=== PATIENT | female | born 2000 | race Caucasian/White ===

== ENCOUNTER 2020-10-25 01:06 | Emergency (ER) | payer SELFPAY ==
--- NOTE | ~2020-10-25 | XR_ITS ---
EXAMINATION: XR ankle LT min 3V DATE: 10/25/2020 04:00 INDICATION: Left ankle injury. TECHNIQUE: 4 views of left ankle were obtained. COMPARISON: None. FINDINGS: Bone alignment is normal. No fracture. Joint spaces are well maintained. IMPRESSION: 1. No fracture. Reviewed, dictated and finalized at location A. IMPRESSION: 1. No fracture.
[2020-10-25 01:10] VITALS: BP 134/79; PULSE 87; RESP 20; TEMP 36.6; O2SAT 99
--- NOTE | 2020-10-25 02:16 | ED.LOWEXIN ---
HPI - Extremity Injury (Lower) General Chief Complaint: Extremity Injury, Lower Stated Complaint: Left ankle injury Time Seen by Provider: 10/25/20 01:20 Source: patient and RN notes reviewed Mode of arrival: wheelchair Limitations: no limitations History of Present Illness complaint: ankle injury Onset (ago): hour(s) (5) Type of Injury: inversion Place: work Severity: moderate Relieving factors: nothing Exacerbating factors: weight bearing and movement Context: walking Associated symptoms: swelling, able to partially bear weight and ambulatory Other symptoms: none Related Data Home Medications Medication Instructions Recorded Confirmed montelukast [Singulair] 10 mg PO DAILY 10/25/20 10/25/20 Allergies Allergy/AdvReac Type Severity Reaction Status Date / Time amoxicillin [From Augmentin] Allergy Unknown Verified 10/25/20 01:40 clavulanic acid Allergy Unknown Verified 10/25/20 01:40 [From Augmentin] Review of Systems Review of Systems: All systems reviewed & are unremarkable except as noted in HPI and below PMFSH Past Medical History Medical History (Updated 10/25/20 @ 02:18 by Bruce Long MD) Allergies Surgical History Surgical History (Updated 10/25/20 @ 02:18 by Bruce Long MD) No pertinent past surgical history Social History Social History (Updated 10/25/20 @ 02:18 by Bruce Long MD) Smoking status: Never smoker Alcohol intake: never Substance use: never Exam Const: General: healthy appearing and no acute distress Nutritional Appearance: well nourished and obese morbidly obese Orientation/consciousness: patient oriented x3 Other: Female nurse in room during examination. HENMT: Head: normal to inspection Ears: external ears normal Eyes: General: appearance normal, both eyes and all related structures Conjunctivae: conjunctivae normal Pupils: Equal, round and reactive pupils present EOM: EOMs intact bilaterally Neck: Neck: normal visual inspection Resp: Effort & Inspection: normal respiratory effort Auscultation: clear to auscultation bilaterally Cardio: Rate: regular rate Rhythm: regular rhythm GI: GI Palp: Yes Soft to palpation and No Tenderness to palpation present (GI) Auscultation: normal bowel sounds Back/Spine/Pelvis: Cervical Spine: cervical ROM normal Thoracic/Lumbar Spine: thoraco-lumbar ROM normal Skin: General skin exam: normal color Rashes: no rashes Neuro: General: patient oriented x3, moves all extremities, no meningeal signs and no focal motor deficits Speech: normal speech Extrem: General: normal exam except as noted Left lower extremity: ankle Details: tenderness Location: of the lateral malleolus, swelling Details: laterally and normal ROM; no warmth Psych: Appearance: grossly normal and well kempt Mental Status: mental status grossly normal Affect: normal affect Attitude: cooperative Thought content: Yes Normal thought content present Course Vital Signs Vital signs: Vital Signs Temperature 36.6 C 10/25/20 01:10 Pulse Rate 87 10/25/20 01:10 Respiratory Rate 20 10/25/20 01:10 Blood Pressure 134/79 10/25/20 01:10 Pulse Oximetry 99 10/25/20 01:10 Temperature 36.6 C 10/25/20 01:10 Pulse Rate 80 10/25/20 02:19 Respiratory Rate 20 10/25/20 02:19 Blood Pressure 130/70 10/25/20 02:19 Pulse Oximetry 98 10/25/20 02:19 Procedures Orthopedic Splinting/Casting Injury #1: Splinting/Casting Date: 10/25/20 Splinting/Casting Time: 02:20 Side: left Lower Extremity Injury Location: ankle Lower Extremity Immobilizer: AirCast Splint: prefabricated Pre-Formed: timur ankle stirrup Pre-Procedure Neuro Vascular Exam: normal Post-Procedure Neuro Vascular Exam: normal Discharge Plan Discharge Clinical Impression: Ankle sprain and strain Patient Disposition: Home, Self-Care Condition: Stable Instructions: Ankle Sprain (ED)
[2020-10-25 02:19] VITALS: BP 130/70; PULSE 80; RESP 20; O2SAT 98
== END 2020-10-25 02:24 | disposition home or self-care (01) ==
PROVIDERS: Emergency Provider Emergency Medicine; PCP Family Medicine
DX: S93.402A Sprain of unspecified ligament of left ankle, initial encounter (principal)
CPT/HCPCS: 29515; 73610; 99282; 99283; L4350

== ENCOUNTER 2021-03-13 16:34 | Outpatient (CLI) | payer BC, MEDICAID, SELFPAY ==
[2021-03-13 16:54] LABS: Basophils Absolute Auto 0.06 K/mm3 (0.00-0.10); Basophils Percent Auto 0.6 % (0.0-1.0); Eosinophils Absolute Auto 0.21 K/mm3 (0.02-0.50); Eosinophils Percent Auto 2.1 % (1.0-6.0); Hematocrit 37.5 % (35.0-49.0); Hemoglobin 12.8 g/dL (12.0-15.0); Immature Granulocyte Absolute 0.02 K/mm3 (0.00-0.00); Immature Granulocyte Percent A 0.2 % (0.0-0.0); Lymphocytes Absolute Auto 2.29 K/mm3 (1.10-4.50); Lymphocytes Percent Auto 23.3 % (18.0-42.0); Mean Corpuscular HGB Conc 34.1 g/dL (32.0-36.0); Mean Corpuscular Hemoglobin 31.7 pg (27.0-31.0); Mean Corpuscular Volume 92.8 fL (78.0-102.0); Monocytes Absolute Auto 0.65 K/mm3 (0.10-0.90); Monocytes Percent Auto 6.6 % (2.0-11.0); Neutrophils Absolute Auto 6.6 K/mm3 (1.7-7.2); Neutrophils Percent Auto 67.2 % (50.0-70.0); Platelet Count Result 334 K/mm3 (150-420); Red Blood Count 4.04 M/mm3 (4.20-5.40); Red Cell Distribution Width 12.1 % (11.6-14.4); White Blood Count 9.8 K/mm3 (4.8-10.8)
[2021-03-13 18:05] LABS: Anion Gap 13 mmol/L (8-16); Blood Urea Nitrogen 10 mg/dL (7-18); Calcium 9.2 mg/dL (8.5-10.1); Carbon Dioxide 26 mmol/L (21-32); Chloride 102 mmol/L (98-108); Estimated Glomerular Filt Rate > 60; Glucose 89 mg/dL (70-99); Osmolality Calculated 290 mOsm/kg (285-295); Potassium 3.8 mmol/L (3.5-5.1); Sodium 141 mmol/L (136-145); Vitamin B12 490 pg/mL (193-986)
[2021-03-13 18:40] LABS: Thyroid Stimulating Hormone Reflex 2.77 u/IU/mL (0.36-3.74)
== END 2021-03-13 16:35 | disposition home or self-care (01) ==
LOC: CHSLAB 16:38
PROVIDERS: PCP Family Medicine; Visit Provider Nurse Practitioner
DX: R73.09 Other abnormal glucose (principal); R53.83 Other fatigue
CPT/HCPCS: 36415; 80048; 82607; 84443; 85025

== ENCOUNTER 2022-01-04 20:39 | Emergency (ER) | payer BC, MEDICAID, SELFPAY ==
[2022-01-04 20:54] VITALS: BP 138/92; PULSE 81; RESP 18; TEMP 36.6; O2SAT 100
[2022-01-04 21:15] VITALS: O2SAT 100
[2022-01-04 21:17] LABS: Add Urine Microscopic? YES; Appearance Urine Clear (Clear); Bilirubin Urine Negative (Negative); Blood Urine 1+ (Negative); Color Urine Light Yellow (Yellow); Glucose Urine UA Negative (Negative); Ketones Urine Negative (Negative); Leukocyte Esterase Ur Negative (Negative); Nitrate Urine Negative (Negative); Protein Urine Negative (Negative); Urobilinogen Urine 0.2 mg/dL (0.2-1.0)
[2022-01-04 21:23] LABS: Bacteria Urine Trace /hpf; RBC Urine 0-2 /hpf (0-2); Squamous Epithelial Cell Urine Few /hpf (Few); WBC Urine 0-3 /hpf (0-3)
[2022-01-04 21:30] VITALS: BP 138/89; O2SAT 99
[2022-01-04 21:31] VITALS: O2SAT 100
--- NOTE | 2022-01-04 21:34 | ED.GENADULT ---
HPI - General Adult General Chief complaint: Unspecified Stated complaint: kidney infection, sore throat Source: patient Mode of arrival: ambulatory History of Present Illness HPI narrative: this is a 21-year-old female that presents with some history of frequency burning upon urination with bladder pressure with currently no flank pain no hematuria is complaining of a sore throat with currently no fever chills no nausea vomiting no chest pain or shortness of breath. Onset (ago): day(s) Severity scale (1-10): 3 Quality: burning Related Data Home Medications Medication Instructions Recorded Confirmed montelukast 10 mg tablet 10 mg PO DAILY 10/25/20 01/04/22 (Singulair) albuterol sulfate 90 mcg/actuation 90 mcg inhalation DAILY 01/04/22 01/04/22 aerosol inhaler dupilumab 300 mg/2 mL subcutaneous 300 mg subcut DAILY 01/04/22 01/04/22 pen injector (Dupixent) escitalopram oxalate 20 mg tablet 20 mg PO DAILY 01/04/22 01/04/22 norethindrone 1.5 mg-ethinyl 1 tablet PO DAILY 01/04/22 01/04/22 estradiol 30 mcg(21)/iron 75 mg(7) tablet (Junel FE 1.5/30 (28)) quetiapine 50 mg tablet 50 mg PO DAILY 01/04/22 01/04/22 Allergies Allergy/AdvReac Type Severity Reaction Status Date / Time amoxicillin [From Augmentin] Allergy Unknown Verified 01/04/22 20:48 clavulanic acid Allergy Unknown Verified 01/04/22 20:48 [From Augmentin] ranitidine Allergy Unknown Verified 01/04/22 20:48 Review of Systems Review of Systems: All systems reviewed & are unremarkable except as noted in HPI and below Eyes: Eyes: Reports as per HPI ENT: Reports system reviewed and no additional complaints, except as documented PMFSH Past Medical History Medical History Allergies Surgical History Surgical History No pertinent past surgical history Social History Social History Smoking status: Never smoker Alcohol intake: never Substance use: never Exam Const: General: cooperative, healthy appearing, comfortable, no acute distress and well developed HENMT: Head: normal to inspection Face and sinus: normal facial exam Mouth: Yes Normal oral and palatal mucosa present Throat: abnormal tonsil Eyes: General: appearance normal, both eyes and all related structures Periorbital: periorbital findings normal Eyelids: eyelids normal Neck: Neck: normal visual inspection, full ROM, no lymphadenopathy and no meningeal signs Resp: Effort & Inspection: normal respiratory effort Auscultation: clear to auscultation bilaterally Cardio: Jugular venous distension: no JVD Palpation: normal PMI Rhythm: regular rhythm Skin: General skin exam: normal color and no rashes or lesions noted Neuro: General: oriented to person, oriented to place and oriented to time Extrem: General: normal to inspection, full ROM and capillary refill normal Psych: Mental Status: mental status grossly normal Course Course Emergency Course: UA reviewed with patient and strep also reviewed patient has enlarged red tonsils and will treat with some a dose of Bactim prior to discharge. Vital Signs Vital signs: Vital Signs Temperature 36.6 C 01/04/22 20:54 Pulse Rate 81 01/04/22 20:54 Respiratory Rate 18 01/04/22 20:54 Blood Pressure 138/92 H 01/04/22 20:54 Pulse Oximetry 100 01/04/22 20:54 Oxygen Delivery Room Air 01/04/22 20:54 Temperature 36.6 C 01/04/22 20:54 Pulse Rate 81 01/04/22 20:54 Respiratory Rate 18 01/04/22 20:54 Blood Pressure 138/92 H 01/04/22 20:54 Pulse Oximetry 100 01/04/22 20:54 Oxygen Delivery Room Air 01/04/22 20:54 Medical Decision Making Vital Signs Vital Signs: Vital Signs Temperature 36.6 C 01/04/22 20:54 Pulse Rate 81 01/04/22 20:54 Respiratory Rate 01/04/22 20:54 Blood Pressure 138/92 H 12/15
[2022-01-04 21:37] LABS: Strep Group A RT-PCR Negative (Negative)
[2022-01-04] MEDS: SULFAMETHOXAZOLE/TRIMETHOPRIM 800/160 MG DS TABLET 2 TAB PO (21:43)
== END 2022-01-04 22:00 | disposition home or self-care (01) ==
PROVIDERS: Emergency Provider Emergency Medicine; PCP Family Medicine
DX: J02.9 Acute pharyngitis, unspecified (principal)
CPT/HCPCS: 81001; 87651; 99283; A9270

== ENCOUNTER 2023-06-17 20:09 | Emergency (ER) | payer BC, MEDICAID, SELFPAY ==
--- NOTE | ~2023-06-17 | CT_ITS ---
EXAMINATION: CT abdomen pelvis w con DATE: 06/17/2023 21:39 INDICATION: Flank pain, status post stent placement 4 days ago TECHNIQUE: Computed tomography (CT) of the abdomen and pelvis was performed with 100 mL Omnipaque-350 intravenous contrast. Automated exposure control and iterative reconstruction technique were employe d. The dose-length product was 1415.73 mGy-cm. COMPARISON: None. FINDINGS: Lower thorax: Unremarkable Liver: Enlarged. Diffuse parenchymal low density. 3.5 cm slightly heterogeneous hyperdense or hyperen hancing right lobe mass. Biliary/Gallbladder: Gallbladder is normal. No bile duct dilation. Pancreas: No mass or duct dilation. Spleen: Normal. Adrenals:No mass. Kidneys: Right nephroureteral stent, in good position. Moderate distal ureteral dilation on the right , no obstructing stone or mass. 3 mm right upper pole and 5 mm right lower pole nonobstructing calcif ications. Normal left kidney. GI tract: No small or large bowel dilation. Appendix mildly dilated to 7 mm, very minimal adjacent fa t stranding. Mesentery/Peritoneum: No ascites, mass, or free air. Retroperitoneum: No mass. Pelvis: Pelvic organs are within normal limits. Soft Tissues: Soft tissues and body wall unremarkable. Bones: No acute osseous finding. IMPRESSION: Hepatomegaly. Steatosis. 3.5 cm right liver lobe mass, recommend nonemergent but timely outpatient MRI of the liver without an d with contrast for further evaluation. Right nephroureteral stent, in good position. Moderate distal ureteral dilation, presumably resolving dilation from recent obstructive uropathy, al though comparison studies not available to assess for interval change. Very mild dilation of the appendix with minimal stranding, may represent early acute appendicitis claude melania inflammatory changes tracking from the right collecting system. Reviewed, dictated and finalized at location [facility]. OR SYSTEMS ARCHITECT IMPRESSION: Hepatomegaly. Steatosis. 3.5 cm right liver lobe mass, recommend nonemergent but timely outpatient MRI o f the liver without and with contrast for further evaluation. Right nephroureteral stent, in good position. Moderate distal ureteral dilation, presumably resolving dilation from recent ob structive uropathy, although comparison studies not available to assess for int erval change. Very mild dilation of the appendix with minimal stranding, may represent early acute appendicitis versus inflammatory changes tracking from the right collecti ng system.
[2023-06-17 20:09] VITALS: BP 144/92; PULSE 106; RESP 20; TEMP 36.9; O2SAT 100
--- NOTE | 2023-06-17 20:17 | ED.FEMALEGU ---
HPI - Female Genitourinary General Chief complaint: Abdominal Pain Stated complaint: post-op fever Time Seen by Provider: 06/17/23 20:17 Source: patient and family History of Present Illness HPI Narrative: 22 years old white female came to the emergency room by private car complaining of nausea, chills, right flank pain radiating to suprapubic area, throbbing pain started 12 hours ago. Patient had Tylenol 1 hour prior to arrival. Patient is status post a urinary procedure and stent placement at [facility] 4 days ago. Today the last dose of Bactrim antibiotic which started 4 days ago. Patient is 3 months Related Data Home Medications Medication Instructions Recorded Confirmed montelukast 10 mg tablet 10 mg PO DAILY 10/25/20 06/17/23 (Singulair) albuterol sulfate 90 mcg/actuation 90 mcg inhalation DAILY 01/04/22 06/17/23 aerosol inhaler dupilumab 300 mg/2 mL subcutaneous 300 mg subcut DAILY 01/04/22 06/17/23 pen injector (Dupixent) escitalopram oxalate 20 mg tablet 20 mg PO DAILY 01/04/22 06/17/23 quetiapine 50 mg tablet 50 mg PO DAILY 01/04/22 06/17/23 omeprazole 40 mg capsule,delayed 40 mg PO DAILY 06/17/23 06/17/23 release valacyclovir 500 mg tablet 500 mg PO DAILY 06/17/23 06/17/23 Allergies Allergy/AdvReac Type Severity Reaction Status Date / Time amoxicillin [From Augmentin] Allergy Unknown Verified 01/04/22 20:48 clavulanic acid Allergy Unknown Verified 01/04/22 20:48 [From Augmentin] ranitidine Allergy Unknown Verified 01/04/22 20:48 Review of Systems Review of Systems: All systems reviewed & are unremarkable except as noted in HPI and below PMFSH Past Medical History Medical History Allergies Surgical History Surgical History No pertinent past surgical history Social History Social History Smoking status: Never smoker Alcohol intake: never Substance use: never Exam Narrative: General appearance: Well-developed, well-nourished Skin: Normal color Head: Normocephalic, nontraumatic Eyes: Clear conjunctiva ENT: Oropharynx normal, ears normal, nose normal Neck: Supple, nontender Chest and respiratory: Airway patent, no respiratory distress, no accessory muscle use Heart: Regular rate/rhythm Abdomen: Soft, zigg-wg-hakwbred tenderness right flank, and suprapubic area , no organomegaly, quiet bowel sounds Vascular: Normal peripheral pulses, normal capillary refill. Musculoskeletal: Normal range of motion, nontender back Neurologic: Alert and oriented ?3, [employer] is normal as tested, no gross motor deficit Course Consultations Consultation #1: DR RAMIREZ ,SURGERY ,[facility]. WAITING LIST Date: 06/17/23 Time: 23:30 Consultation #2: DR [facility] AT [facility] WHO ACCEPT[facility] THE PATIENT TRANSFER PAIN Date: 06/18/23 Time: 02:05 Vital Signs Vital signs: Vital Signs Temperature 36.9 C 06/17/23 20:09 Pulse Rate 106 H 06/17/23 20:09 Respiratory Rate 20 06/17/23 20:09 Blood Pressure 144/92 H 06/17/23 20:09 Pulse Oximetry 100 06/17/23 20:09 Oxygen Delivery Room Air 06/17/23 20:09 Temperature 36.9 C 06/18/23 00:00 Pulse Rate 102 H 06/18/23 00:00 Respiratory Rate 18 06/18/23 00:00 Blood Pressure 129/61 06/18/23 00:00 Pulse Oximetry 97 06/18/23 00:00 Oxygen Delivery Room Air 06/18/23 00:00 MDM - Female Genitourinary MDM Narrative Medical decision making narrative: IN THE ED PATIENT RECEIVED 1 L OF NORMAL SALINE, 8 MG OF ZOFRAN IV, 30 MG OF TORADOL IV 1
[2023-06-17 20:22] LABS: Appearance Urine Clear (Clear); Bilirubin Urine Negative (Negative); Blood Urine 3+ (Negative); Color Urine Light Yellow (Yellow); Glucose Urine UA Negative (Negative); Ketones Urine Negative (Negative); Leukocyte Esterase Ur Trace LEU/UL (Negative); Nitrate Urine Negative (Negative); Protein Urine 1+ (Negative); Urobilinogen Urine 0.2 mg/dL (0.2-1.0)
[2023-06-17 20:41] LABS: Basophils Absolute Auto 0.03 K/mm3 (0.00-0.10); Basophils Percent Auto 0.4 % (0.0-1.0); Eosinophils Absolute Auto 0.07 K/mm3 (0.02-0.50); Eosinophils Percent Auto 0.9 % (1.0-6.0); Hemoglobin 12.2 g/dL (12.0-15.0); Immature Granulocyte Absolute 0.02 K/mm3 (0.00-0.00); Immature Granulocyte Percent A 0.3 % (0.0-0.0); Lymphocytes Absolute Auto 1.33 K/mm3 (1.10-4.50); Mean Corpuscular Hemoglobin 30.1 pg (27.0-31.0); Mean Corpuscular Volume 91.4 fL (78.0-102.0); Mean Platelet Volume 8.8 fl (9.2-11.8); Monocytes Absolute Auto 0.39 K/mm3 (0.10-0.90); Neutrophils Percent Auto 76.4 % (50.0-70.0); Platelet Count Result 225 K/mm3 (150-420); Red Blood Count 4.05 M/mm3 (4.20-5.40); Red Cell Distribution Width 13.3 % (11.6-14.4); White Blood Count 7.8 K/mm3 (4.8-10.8)
[2023-06-17 20:44] LABS: Add Urine Microscopic? YES; Bacteria Urine None seen /hpf; RBC Urine 21-50 /hpf (0-2); Squamous Epithelial Cell Urine Occasional /hpf (Few); WBC Urine 0-3 /hpf (0-3)
[2023-06-17] MEDS: SODIUM CHLORIDE 0.9% IV 1,000 ML 999 ML IV CONT (20:46)
[2023-06-17 20:57] LABS: Alanine Aminotransferase 40 U/L (14-59); Albumin Level 3.7 g/dL (3.4-5.0); Alkaline Phosphatase 108 U/L (46-116); Anion Gap 10 mmol/L (8-16); Aspartate Amino Transferase 17 U/L (15-37); Bilirubin,Total 0.3 mg/dL (0.00-1.00); Blood Urea Nitrogen 17 mg/dL (7-18); Calcium 8.4 mg/dL (8.5-10.1); Carbon Dioxide 28 mmol/L (21-32); Chloride 97 mmol/L (98-108); Estimated CRCL calculation 111 ml/min; Estimated Glomerular Filt Rate > 60; Glucose 87 mg/dL (70-99); Osmolality Calculated 280 mOsm/kg (285-295); Potassium 3.9 mmol/L (3.5-5.1); Sodium 135 mmol/L (136-145); Total Protein 7.3 g/dL (6.4-8.2)
[2023-06-17] MEDS: ONDANSETRON INJ 4 MG/2 ML VIAL 8 MG IV PUSH (21:00)
[2023-06-17 21:02] LABS: Lactic Acid Reflex 1.1 mmol/L (0.4-2.0)
[2023-06-17 21:30] VITALS: BP 142/79; PULSE 100; RESP 20; TEMP 37.5; O2SAT 98
--- NOTE | 2023-06-17 22:07 | PC.NURSE ---
Spoke c pt about results. Will call pts. urology surgeon at [facility] for possible transfer. Pt states she is feeling worse again, cheeks flushed and temp increasing. Flu, covid swab obtained for testing.
[2023-06-17 22:09] VITALS: BP 132/69; PULSE 112; RESP 20; O2SAT 100
[2023-06-17] MEDS: KETOROLAC 30 MG/ML VIAL (*BKC) IV PUSH (22:18)
[2023-06-17] MEDS: ERTAPENEM 1 GM/NS 50 ML 1 GM/50 ML BAG IVPB (22:20)
[2023-06-17 22:41] VITALS: BP 125/66; PULSE 117; RESP 20; O2SAT 98
[2023-06-17 22:44] LABS: SARS-CoV-2 RNA PCR Negative (Negative)
[2023-06-17 22:45] LABS: Influenza A QL RT-PCR Negative (Negative); Influenza B QL RT-PCR Negative (Negative); RSV RNA, RT-PCR Negative (Negative)
--- NOTE | 2023-06-17 23:24 | PC.NURSE ---
Discussed POC for transfer c pt and S.O. Explained no beds at [facility] where pts. urologist is located and no beds at [facility]. Pt to stay in ER until possible bed available at [facility] tomorrow for transfer to her urologist Dr Elizabeth.
--- NOTE | 2023-06-17 23:42 | PC.NURSE ---
Order per ERP ok for pt to have ice chips and water but no food at this time. Bed from 2nd floor given to pt to sleep for night. VSS. Will await bed placement at [facility] [place][note 2] tomorrow.
[2023-06-17] MEDS: ONDANSETRON INJ 4 MG/2 ML VIAL IV PUSH (23:49)
[2023-06-17] MEDS: SODIUM CHLORIDE 0.9% IV 1,000 ML 100 ML IV CONT (23:49)
[2023-06-18] VITALS: BP 129/61; PULSE 102; RESP 18; TEMP 36.9; O2SAT 97
--- NOTE | 2023-06-18 01:31 | PC.NURSE ---
Pt sleeping, resting comfortably, RR even and nonlabored, spouse in room c pt. Continuing to monitor until bed available. IVF infusing s difficulty.
--- NOTE | 2023-06-18 03:00 | PC.NURSE ---
Pt sleeping, awakens easily. Pt reports no pain at this time, she is diaphoretic and states her fever has broken. Continuing to monitor and await bed at [facility]. Pt updated on transfer to [facility] status. IVF continuing to infuse. Call banks at pt side.
[2023-06-18 04:00] VITALS: BP 109/60; PULSE 90; RESP 18; TEMP 36.4; O2SAT 97
--- NOTE | 2023-06-18 04:07 | PC.NURSE ---
Pt ambulated steadily to BR per self, updated on bed status for [facility], on waitlist. IVF continue to infuse, VSS.
--- NOTE | 2023-06-18 06:02 | PC.NURSE ---
Pt sleeping, resting comfortably, RR even and nonlabored, IVF continue to infuse s difficulty. Call banks at pt side. No changes, awaiting call for bed placement to [facility].
--- NOTE | 2023-06-18 07:06 | PC.NURSE ---
Pt resting c fiance at bedside. IVF continue to infuse, report given to RICHARD Bazan
[2023-06-18] MEDS: DEXTROSE 5%/0.45% SOD CHL 1,000 ML 100 ML IV CONT (07:54)
[2023-06-18 08:01] VITALS: BP 134/80; PULSE 82; RESP 14; TEMP 37.1; O2SAT 98
[2023-06-18 09:39] LABS: Pregnancy On Board Control Positive; Urine Pregnancy Test Negative
[2023-06-18 10:55] VITALS: BP 131/85; PULSE 84; RESP 19; TEMP 36.8; O2SAT 99
[2023-06-18 11:00] LABS: Basophils Absolute Auto 0.02 K/mm3 (0.00-0.10); Basophils Percent Auto 0.5 % (0.0-1.0); Eosinophils Absolute Auto 0.05 K/mm3 (0.02-0.50); Eosinophils Percent Auto 1.2 % (1.0-6.0); Hematocrit 33.6 % (35.0-49.0); Hemoglobin 11.3 g/dL (12.0-15.0); Immature Granulocyte Absolute 0.01 K/mm3 (0.00-0.00); Immature Granulocyte Percent A 0.2 % (0.0-0.0); Lymphocytes Absolute Auto 0.89 K/mm3 (1.10-4.50); Mean Corpuscular HGB Conc 33.6 g/dL (32.0-36.0); Mean Corpuscular Hemoglobin 30.6 pg (27.0-31.0); Mean Corpuscular Volume 91.1 fL (78.0-102.0); Mean Platelet Volume 8.9 fl (9.2-11.8); Monocytes Percent Auto 7.4 % (2.0-11.0); Neutrophils Absolute Auto 2.8 K/mm3 (1.7-7.2); Neutrophils Percent Auto 68.7 % (50.0-70.0); Platelet Count Result 186 K/mm3 (150-420); Red Blood Count 3.69 M/mm3 (4.20-5.40); Red Cell Distribution Width 13.3 % (11.6-14.4); White Blood Count 4.1 K/mm3 (4.8-10.8)
[2023-06-18 11:18] LABS: Alanine Aminotransferase 38 U/L (14-59); Albumin Level 2.9 g/dL (3.4-5.0); Alkaline Phosphatase 94 U/L (46-116); Anion Gap 9 mmol/L (8-16); Aspartate Amino Transferase 17 U/L (15-37); Bilirubin,Total 0.2 mg/dL (0.00-1.00); Blood Urea Nitrogen 12 mg/dL (7-18); Calcium 7.9 mg/dL (8.5-10.1); Carbon Dioxide 25 mmol/L (21-32); Chloride 103 mmol/L (98-108); Estimated CRCL calculation 135 ml/min; Estimated Glomerular Filt Rate > 60; Glucose 96 mg/dL (70-99); Osmolality Calculated 283 mOsm/kg (285-295); Potassium 3.9 mmol/L (3.5-5.1); Sodium 137 mmol/L (136-145); Total Protein 6.1 g/dL (6.4-8.2)
--- NOTE | 2023-06-18 11:18 | PC.NURSE ---
[facility], [facility], and [facility] contacted to remove pt from bed wait lists...pt accepted at [facility] in [place]
[2023-06-18 11:21] LABS: Lactic Acid Reflex 0.8 mmol/L (0.4-2.0)
--- NOTE | 2023-06-24 12:38 | PC.NURSE ---
FINAL BLOOD CULTURE REPORT NO GROWTH AFTER 5 DAYS.
== END 2023-06-18 11:35 | disposition short-term general hospital (02) ==
PROVIDERS: Emergency Medicine; Emergency Provider Emergency Medicine; PCP Family Medicine
DX: K37 Unspecified appendicitis (principal); R16.0 Hepatomegaly, not elsewhere classified; Z79.899 Other long term (current) drug therapy; Z20.822 Contact with and (suspected) exposure to COVID-19
CPT/HCPCS: 36415; 74177; 80053; 81001; 81025; 83605; 85025; 87040; 87637; 96361; 96365; 96375; 99285; J1335; J1885; J2405; J7030; Q9967